=== PATIENT | male | born 1940 | race Caucasian/White ===

== ENCOUNTER → 2018-01-23 | Outpatient (CLI) | payer MEDICARE, OTHER ==
[~2018-01-23] MED LIST: LISI-167 PO; OMEP20TA62 PO
[2018-01-23 15:41] LABS: ALBUMIN 3.3 g/dL (3.4-5.0); ANION GAP 7 mmol/L (5-15); CALCIUM 9.3 mg/dL (8.5-10.1); CHLORIDE 104 mmol/L (98-107)
[2018-01-23 15:44] LABS: ALANINE AMINOTRANSFERASE 35 U/L (12-78); ALKALINE PHOSPHATASE 149 U/L (45-117); CREATININE 1.07 mg/dL (0.7-1.3); TOTAL PROTEIN 7.6 g/dL (6.4-8.2)
== END ==
LOC: STAR 14:11
PROVIDERS: ATTEND Surgery
DX: Z01.818 Encounter for other preprocedural examination (principal); R94.31 Abnormal electrocardiogram [ECG] [EKG]
CPT/HCPCS: 36415; 80053; 93005

== ENCOUNTER 2018-01-27 06:42 | Day surgery (SDC) | payer MEDICARE, OTHER ==
[2018-01-23 15:33] VITALS: BP 116/64
[~2018-01-27] VITALS: Ht 180.3 cm; Wt 79.7 kg
[2018-01-27] MEDS ORDERED: LACTATED RINGERS 1,000 ML IV SCH (07:10)
[2018-01-27] MEDS ORDERED: BUPIVACAINE 0.25% ONE (07:45)
[2018-01-27] MEDS ORDERED: EPINEPHRINE 1 MG/ML, 1ML ONE (07:45)
[2018-01-27] MEDS ORDERED: ONDANSETRON ODT 8 MG PO STA (08:09)
[2018-01-27] MEDS ORDERED: GABAPENTIN 300 MG CAPSULE PO STA (08:09)
[2018-01-27] MEDS ORDERED: ACETAMINOPHEN 500 MG TABLET PO STA (08:09)
[2018-01-27] MEDS ORDERED: MIDAZOLAM 1 MG/ML, 2ML ONE (08:24)
[2018-01-27] MEDS ORDERED: FENTANYL PF 100 MCG/2ML ONE (08:24)
[2018-01-27] MEDS ORDERED: PROPOFOL 10 MG/ML, 20ML ONE (08:25)
[2018-01-27] MEDS ORDERED: LIDOCAINE-MPF 2% ,5ML ONE (08:25)
[2018-01-27] MEDS ORDERED: PHENYLEPHRINE 10 MG/ML ONE (08:26)
[2018-01-27] MEDS ORDERED: DEXAMETHASONE 4 MG/ML, 1ML ONE ×2 (08:27)
[2018-01-27] MEDS ORDERED: SUCCINYLCHOLINE 20 MG/ML, 10ML ONE (08:28)
[2018-01-27] MEDS ORDERED: BUPIVACAINE LIPOSOME/PF INFIL ONE (08:42)
[2018-01-27] MEDS ORDERED: ROCURONIUM 10 MG/ML,10ML ONE (08:51)
[2018-01-27] MEDS ORDERED: NEOSTIGMINE 1 MG/ML, 10ML ONE (08:51)
[2018-01-27] MEDS ORDERED: GLYCOPYRROLATE 0.2MG/1ML, 5ML ONE (08:51)
[2018-01-27] MEDS ORDERED: FENTANYL PF 100 MCG/2ML IV PRN (09:30)
[2018-01-27] MEDS ORDERED: MEPERIDINE/PF 25MG/0.5ML IVPush PRN (09:30)
[2018-01-27] MEDS ORDERED: HYDROmorphone 1 MG/ML, 1ML IV PRN (09:30)
[2018-01-27] MEDS ORDERED: LABETALOL 5MG/ML, 20ML IV PRN (09:30)
[2018-01-27] MEDS ORDERED: HALOPERIDOL 5 MG/ML IV PRN (09:30)
[2018-01-27] MEDS ORDERED: OXYcodone 5 MG/5 ML ORAL.SOL UDC PO PRN (09:30)
[2018-01-27] MEDS ORDERED: hydrALAzine 20 MG/ML, 1ML IV PRN (09:30)
== END 2018-01-27 16:30 | disposition home or self-care (01) ==
LOC: OUT 06:42
PROVIDERS: ATTEND Surgery
DX: D12.8 Benign neoplasm of rectum (principal); K62.89 Other specified diseases of anus and rectum; K44.9 Diaphragmatic hernia without obstruction or gangrene; I10 Essential (primary) hypertension; Z85.46 Personal history of malignant neoplasm of prostate; Z98.890 Other specified postprocedural states
CPT/HCPCS: 45499; 88305; C9290; J0171; J0330; J1100; J2250; J2370; J2704; J2710; J3010; J3490; J7120; Q0162

== ENCOUNTER 2018-03-03 10:46 | Day surgery (SDC) | payer MEDICARE, OTHER ==
[~2018-03-03] VITALS: Ht 180.3 cm; Wt 79.6 kg
[~2018-03-03 10:46] MED LIST changes: +MULT-516 PO
[2018-03-03 11:22] VITALS: BP 105/66
[2018-03-03] MEDS ORDERED: LACTATED RINGERS 1,000 ML IV SCH (12:00)
[2018-03-03] MEDS ORDERED: MIDAZOLAM 1 MG/ML, 2ML ONE (12:37)
[2018-03-03] MEDS ORDERED: FENTANYL PF 100 MCG/2ML ONE (12:37)
[2018-03-03] MEDS ORDERED: PROPOFOL 10 MG/ML, 20ML ONE (12:42)
[2018-03-03] MEDS ORDERED: hydrALAzine 20 MG/ML, 1ML IV PRN (13:00)
[2018-03-03] MEDS ORDERED: HALOPERIDOL 5 MG/ML IV PRN (13:00)
[2018-03-03] MEDS ORDERED: HYDROmorphone 1 MG/ML, 1ML IV PRN (13:00)
[2018-03-03] MEDS ORDERED: FENTANYL PF 100 MCG/2ML IV PRN (13:00)
[2018-03-03] MEDS ORDERED: LABETALOL 5MG/ML, 20ML IV PRN (13:00)
[2018-03-03] MEDS ORDERED: OXYcodone 5 MG/5 ML ORAL.SOL UDC PO PRN (13:00)
[2018-03-03] MEDS ORDERED: ACETAMINOPHEN 325 MG TABLET PO PRN (13:00)
[2018-03-03] MEDS ORDERED: PROMETHAZINE 25 MG/ML, 1ML IV PRN (13:00)
[2018-03-03] MEDS ORDERED: MEPERIDINE/PF 25MG/0.5ML IVPush PRN (13:00)
== END 2018-03-03 16:00 | disposition home or self-care (01) ==
LOC: OUT 10:46
PROVIDERS: ATTEND Surgery
DX: K62.89 Other specified diseases of anus and rectum (principal); K64.8 Other hemorrhoids; K44.9 Diaphragmatic hernia without obstruction or gangrene; K21.9 Gastro-esophageal reflux disease without esophagitis; Z86.010 Personal history of colon polyps; Z85.46 Personal history of malignant neoplasm of prostate; I10 Essential (primary) hypertension; Z98.890 Other specified postprocedural states; Z87.891 Personal history of nicotine dependence; Z79.899 Other long term (current) drug therapy
CPT/HCPCS: 45330; J2250; J2704; J3010; J7120